=== PATIENT | male | born 1985 | race African-American/Black ===

== ENCOUNTER 2021-12-09 15:19 | Emergency (ER) | payer MEDICAID, OTHER ==
[~2021-12-09] VITALS: Ht 190.5 cm; Wt 118.0 kg
[~2021-12-09 15:19] MED LIST: [UNRECOGNIZED DRUG - REMARK]
[2021-12-09] MEDS ORDERED: SODIUM CHLORIDE 0.9% 1,000 ML IV ONE (16:15)
[2021-12-09 16:31] LABS: BASOPHILS % 1.1 % (0.0-2.0); EOSINOPHILS % 5.5 % (0.0-5.0); HEMATOCRIT. 41.9 % (42.0-52.0); HEMOGLOBIN. 14.2 g/dL (14.0-18.0); MEAN CORPUSCULAR HEMOGLOBIN 27.9 pg (28.0-32.0); MEAN PLATELET VOLUME 9.5 fl (7.4-10.4); MONOCYTES % 12.2 % (2.0-8.0); NEUTROPHILS % 46.2 % (40.0-76.0); PLATELET 240 x1000/uL (130-400); RED BLOOD CELL COUNT 5.11 mill/uL (4.7-6.1); RED CELL DISTRIBUTION WIDTH 13.4 % (11.6-14.6)
[2021-12-09 16:35] LABS: CHLORIDE 105 mEq/L (98-107)
[2021-12-09] MEDS ORDERED: POTASSIUM CHLORIDE 20MEQ TABLET SR PO NR (16:45)
[2021-12-09 18:28] VITALS: BP 180/111
== END 2021-12-09 19:36 | disposition home or self-care (01) ==
LOC: ER 15:19
DX: R00.2 Palpitations (principal); E87.6 Hypokalemia; I10 Essential (primary) hypertension; Z91.041 Radiographic dye allergy status
CPT/HCPCS: 36415; 71045; 80053; 84443; 84484; 85025; 93005; 96360; 99285; J7030; Z7610